=== PATIENT | male | born 1975 | race Caucasian/White ===

== ENCOUNTER 2022-09-05 21:19 | Emergency (ER) | payer BC, SELFPAY ==
[2022-09-05 21:31] VITALS: BP 147/82; PULSE 94; RESP 18; TEMP 36.8; O2SAT 95; BMI 26.4
--- NOTE | 2022-09-05 21:43 | PC.NURSE ---
Pt reporting left sided chest pain along with cold like symptoms.
[2022-09-05 21:49] VITALS: BP 135/78; PULSE 88; TEMP 36.9; O2SAT 96
--- NOTE | 2022-09-05 21:50 | DI.RAD.S_ITS ---
PROCEDURE: XR CHEST 2V INDICATIONS: cough, chest pain TECHNIQUE: 2 views of the chest were acquired. COMPARISON: None. FINDINGS: Surgical changes and devices: None. Lungs and pleura: Lungs are clear. No pleural effusions or pneumothorax. Mediastinum: Mediastinal contours are normal. Heart size is normal. Bones and chest wall: No suspicious bony abnormalities. Soft tissues appear unremarkable. IMPRESSION: No definite pneumonia found. Dictated by: Solitario Murphy M.D. on 09/05/2022 at 22:29 Approved by: Solitario Murphy M.D. on 09/05/2022 at 22:29
[2022-09-05 22:46] VITALS: BP 124/71; PULSE 85; O2SAT 96
[2022-09-05 23:01] LABS: Influenza A - CEPHEID Flu A NEGATIVE (NEGATIVE); Influenza B - CEPHEID Flu B NEGATIVE (NEGATIVE); Respiratory Syncytial Virus Negative (Negative)
[2022-09-05 23:03] LABS: COVID-19 CEPHEID 4-PLEX PCR POSITIVE (Negative)
[2022-09-05 23:14] LABS: INR 1.1 (0.9-1.3); Prothrombin Time 12.3 SECONDS (10.1-12.7)
[2022-09-05 23:17] LABS: PTT Partial Thromboplastin Tim 34 SECONDS (26-36)
[2022-09-05 23:19] LABS: Alanine Aminotransferase 72 IU/L (<50); Albumin 4.1 g/dL (3.5-5.0); Albumin Globulin Ratio 1.3 (1.0-2.8); Alkaline Phosphatase 87 U/L (38-126); Aspartate Aminotransferase 42 IU/L (17-59); BUN Creatinine Ratio 13.8 (6-22); Bilirubin Total 0.5 mg/dL (0.2-1.3); Blood Urea Nitrogen 12 mg/dL (9-20); Calcium 8.7 mg/dL (8.4-10.2); Carbon Dioxide 28 mmol/L (22-32); Chloride 103 mmol/L (98-107); Creatine Kinase 141 U/L (55-170); Estimated Glomerular Filt Rate > 60 mL/min (>60); Globulin 3.1 g/dL (1.7-4.1); Glucose 95 mg/dL (70-100); HEMOLYSIS 42 (0-50); Lipase 68 U/L (23-300); Magnesium 2.2 mg/dL (1.6-2.3); Potassium 4.1 mmol/L (3.4-5.1); Sodium 138 mmol/L (137-145); Total Protein 7.2 g/dL (6.3-8.2)
[2022-09-05 23:27] LABS: Add Manual Diff / Slide Review NO; Basophils Absolute Auto 0 /uL (0-100); Basophils Percent Auto 0.4 % (0-2); Eosinophils Absolute Auto 200 /uL (0-450); Eosinophils Percent Auto 4.3 % (2-4); Hematocrit 42.3 % (41-53); Hemoglobin 14.3 g/dL (13.5-17.5); Lymphocytes Absolute Auto 2000 /uL (1100-4500); Lymphocytes Percent Auto 36.8 % (25-40); Mean Corpuscular HGB Conc 33.7 % (30-36); Mean Corpuscular Hemoglobin 30.1 PG (26-34); Mean Corpuscular Volume 89.3 fL (80-100); Monocytes Absolute Auto 600 /uL (0-900); Monocytes Percent Auto 11.4 % (3-14); Neutrophils Absolute Auto 2600 /uL (1500-7000); Neutrophils Percent Auto 47.1 % (50-75); Platelet Count 239 X10^3/uL (150-400); Red Blood Cell Count 4.74 X10^6/uL (4.5-5.9); Red Cell Distribution Width 13.5 % (11.6-14.8); White Blood Cell Count 5.5 X10^3/uL (4.5-11.0)
[2022-09-05 23:30] LABS: Troponin I < 0.012 ng/mL (0.01-0.034)
[2022-09-05 23:34] LABS: CKMB % Relative Index 0.2 % (1.5-5.0); Creatine Kinase MB 0.35 ng/mL (<2.37)
--- NOTE | 2022-09-06 00:03 | ED_ITS ---
HPI - Chest Pain General Chief Complaint: Upper Respiratory Symptoms Stated Complaint: cough/tight chest x2 days Time Seen by Provider: 09/05/22 21:49 Source: patient, family and RN notes reviewed Mode of arrival: Ambulatory Limitations: no limitations History of Present Illness HPI narrative: This is a 46-year-old male who presents with complaint of 2 days of generalized myalgias starting more in his back, nasal congestion, sore throat. Patient developed some left-sided chest discomfort shortness of breath. He used his albuterol and QVAR which he states helped his shortness of breath. He is had a cough which been nonproductive no hemoptysis or other color changes. Has not had fevers but he is had night sweats. He denies nausea or vomiting. No diarrhea constipation. No swelling in his extremities. Patient states he went to a [employer] dance several days before that without a mask and since then both him and his son have developed symptoms. Patient states he takes amlodipine, uses QVAR and albuterol as his only medications. He had Tylenol in the last day. Denies any surgeries. No allergies. No tobacco. Occasional alcohol. No illicit. Patient states when he has asthma flares he usually just started using his QVAR he does not use it as a maintenance therapy and this often resolves his symptoms and he states it has helped. Related Data Home Medications Medication Instructions Recorded Confirmed albuterol sulfate 2 inh Q4H PRN Shortness Of Breath 09/05/22 09/05/22 amlodipine 5 mg tablet 5 mg DAILY 09/05/22 09/05/22 Previous Rx's Medication Instructions Recorded beclomethasone dipropionate 80 1 inh inhalation Q12H #10.6 grams 09/06/22 mcg/actuation HFA breath activated aerosol (Qvar RediHaler) Allergies Allergy/AdvReac Type Severity Reaction Status Date / Time No Known Drug Allergies Allergy Verified 09/05/22 21:38 Review of Systems Review of Systems ROS Unobtainable: All systems reviewed & are unremarkable except as noted in HPI and below Patient History Social History Smoking Status: Never smoker Smoking Status: Never smoker alcohol intake frequency: holidays/special occasions only Substance Use Type: does not use Exam Narrative Exam Narrative: GEN: well nourished, well appearing male, alert and oriented x 3, patient appear s to be in mild distress. HEENT: Atraumatic, pupils are equal round reactive to light, extraocular m ovements are intact, nares are clear HEART: Regular rate and rhythm without murmur, clicks, rubs LUNGS:Lungs clear to auscultation, no wheezes, rales, crackles, chest moves symmetrically, no tachypnea or accessory muscle use. Patient's speaks in full sentences ABD:bowel sounds normal, soft, non-tender, no guarding, rebound, rigidity, no masses noted, no hepatosplenomegaly :No CVA tenderness MSCL: Non-tender, no muscle atrophy, muscles strength 5/5 upper and lower extremities, full range of motion, normal gait NEURO:CN 2-12 intact, sensation normal, Initial Vital Signs Initial Vital Signs: Vital Signs Temperature 98.3 F 09/05/22 21:31 Pulse Rate 94 H 09/05/22 21:31 Respiratory Rate 18 09/05/22 21:31 Blood Pressure 147/82 H 09/05/22 21:31 Pulse Oximetry 95 09/05/22 21:31 Oxygen Delivery Method 09/05/22 21:31 Course Orders Ordered: ED Orders 09/05/22 21:45 EKG-12 Lead Stat 09/05/22 21:50 Chest [XR chest 2V] Stat 09/05/22 21:59 Covid-19 + FLU A/B + RSV - PCR Stat 09/05/22 22:54 Complete Blood Count AUTO DIFF Stat Comprehensive Metabolic Panel Stat Lipase Stat Magnesium Stat Partial Thromboplastin Time Stat Prothrombin Time INR Stat Troponin & CK Cardiac Panel Stat Discontinued Medications Aspirin (Aspirin 81 Mg Chew Tab) 324 mg PO NOW ONE Stop: 09/05/22 23:02 Last Admin: 09/06/22 00:15 Dose: Not Given Documented By: SB NOREPINEPHRINE BITARTRATE/D5W (Levophed) 4 mg in 250 mls @ 30 mls/hr IV TITRATE LETY; Protocol Vital Signs Vital signs: Vital Signs - 8 hr 09/05/22 21:31 09/05/22 21:49 09/05/22 22:46 Temperature 98.3 F 98.4 F Pulse Rate 94 H 88 85 Respiratory Rate 18 Blood Pressure 147/82 H 135/78 124/71 Pulse Oximetry 95 96 96 Oxygen Delivery Method Room Air Room Air Room Air MDM - Chest Pain Lab Data 09/05/22 22:54 09/05/22 22:54 Labs: Lab Results 09/05/22 09/05/22 09/05/22 Range/Units 21:59 22:54 22:54 WBC 5.5 (4.5-11.0) X10^3/uL RBC 4.74 (4.5-5.9) X10^6/uL Hgb 14.3 (13.5-17.5) g/dL Hct 42.3 (41-53) % MCV 89.3 (80-100) fL MCH 30.1 (26-34) PG MCHC 33.7 (30-36) % RDW 13.5 (11.6-14.8) % Plt Count 239 (150-400) X10^3/uL Neut % (Auto) 47.1 L (50-75) % Lymph % (Auto) 36.8 (25-40) % Erie % (Auto) 11.4 (3-14) % Eos % (Auto) 4.3 H (2-4) % Baso % (Auto) 0.4 (0-2) % Neut # (Auto) 2600 (1080-8262) /uL Lymph # (Auto) 2000 (8825-4126) /uL Erie # (Auto) 600 (0-900) /uL Eos # (Auto) 200 (0-450) /uL Baso # (Auto) 0 (0-100) /uL PT 12.3 (10.1-12.7) SECONDS INR 1.1 (0.9-1.3) APTT 34 (26-36) SECONDS Sodium (137-145) mmol/L Potassium (3.4-5.1) mmol/L Chloride (98-107) mmol/L Carbon Dioxide (22-32) mmol/L BUN (9-20) mg/dL Creatinine (0.66-1.25) mg/dL Estimated GFR (>60) mL/min BUN/Creatinine Ratio (6-22) Glucose (70-100) mg/dL Calcium (8.4-10.2) mg/dL Magnesium (1.6-2.3) mg/dL Total Bilirubin (0.2-1.3) mg/dL AST (17-59) IU/L ALT (<50) IU/L Alkaline Phosphatase (38-126) U/L Total Creatine Kinase (55-170) U/L CK-MB (CK-2) (<2.37) ng/mL CK-MB (CK-2) Rel Index (1.5-5.0) % Troponin I (0.01-0.034) ng/mL Total Protein (6.3-8.2) g/dL Albumin (3.5-5.0) g/dL Globulin (1.7-4.1) g/dL Albumin/Globulin Ratio (1.0-2.8) Lipase (23-300) U/L SARS-CoV-2 (PCR) Positive H (Negative) Influenza A (RT-PCR) Flu a negative (NEGATIVE) Influenza B (RT-PCR) Flu b negative (NEGATIVE) RSV (PCR) Negative (Negative) 09/05/22 Range/Units 22:54 WBC (4.5-11.0) X10^3/uL RBC (4.5-5.9) X10^6/uL Hgb (13.5-17.5) g/dL Hct (41-53) % MCV (80-100) fL MCH (26-34) PG MCHC (30-36) % RDW (11.6-14.8) % Plt Count (150-400) X10^3/uL Neut % (Auto) (50-75) % Lymph % (Auto) (25-40) % [place]rie % (Auto) (3-14) % Eos % (Auto) (2-4) % Baso % (Auto) (0-2) % Neut # (Auto) (5350-0250) /uL Lymph # (Auto) (5805-8617) /uL Erie # (Auto) (0-900) /uL Eos # (Auto) (0-450) /uL Baso # (Auto) (0-100) /uL PT (10.1-12.7) SECONDS INR (0.9-1.3) APTT (26-36) SECONDS Sodium 138 (137-145) mmol/L Potassium 4.1 (3.4-5.1) mmol/L Chloride 103 (98-107) mmol/L Carbon Dioxide 28 (22-32) mmol/L BUN 12 (9-20) mg/dL Creatinine 0.87 (0.66-1.25) mg/dL Estimated GFR > 60 (>60) mL/min BUN/Creatinine Ratio 13.8 (6-22) Glucose 95 (70-100) mg/dL Calcium 8.7 (8.4-10.2) mg/dL Magnesium 2.2 (1.6-2.3) mg/dL Total Bilirubin 0.5 (0.2-1.3) mg/dL AST 42 (17-59) IU/L ALT 72 H (<50) IU/L Alkaline Phosphatase 87 (38-126) U/L Total Creatine Kinase 141 (55-170) U/L CK-MB (CK-2) 0.35 (<2.37) ng/mL CK-MB (CK-2) Rel Index 0.2 L (1.5-5.0) % Troponin I < 0.012 (0.01-0.034) ng/mL Total Protein 7.2 (6.3-8.2) g/dL Albumin 4.1 (3.5-5.0) g/dL Globulin 3.1 (1.7-4.1) g/dL Albumin/Globulin Ratio 1.3 (1.0-2.8) Lipase 68 (23-300) U/L SARS-CoV-2 (PCR) (Negative) Influenza A (RT-PCR) (NEGATIVE) Influenza B (RT-PCR) (NEGATIVE) RSV (PCR) (Negative) Imaging Data Chest x-ray: Radiologist's Impression: [address] [address] XRay Report Signed Patient: Nghia Pinto MR#: [id number] : 1975 Acct:[id number] Age/Sex: 46 / M Date of Service: 09/05/22 Loc: ED Accession Number: [id number] ?? Procedure: XR chest 2V Ordering Provider: Janet Cardoso D.O. PROCEDURE:? XR CHEST 2V ? INDICATIONS:? cough, chest pain ? TECHNIQUE:? 2 views of the chest were acquired.? ? COMPARISON:? None. ? FINDINGS:? ? Surgical changes and devices:? None.? ? Lungs and pleura:? Lungs are clear.? No pleural effusions or pneumothorax.? ? Mediastinum:? Mediastinal contours are normal.? Heart size is normal.? ? Bones and chest wall:? No suspicious bony abnormalities.? Soft tissues appear unremarkable.? ? IMPRESSION:? No definite pneumonia found. ? ? Dictated by: oSlitario Murphy M.D. on 09/05/2022 at 22:29 ? ? Approved by: Solitario Murphy M.D. on 09/05/2022 at 22:29?? ECG Data Attestation: I personally reviewed and interpreted this ECG as follows: Prior ECG tracings: not available for review Interpretation: Sinus rhythm rate of 77 RI 136 QRS of 96 QTC 439. Incomplete right bundle-bran ch. No priors. MDM Narrative Medical decision making narrative: This is 46-year-old male with history of asthma who is had 2 days of upper respiratory type symptoms little bit of flare of his asthma exacerbation. Patient states uses albuterol and QVAR which has helped. He had some left-sided chest pain with cough. Nonproductive no blood. He has not had fevers but has had night sweats. Patient and his son have both tested positive for COVID tonight. He had cardiac workup which was negative with CMP, CBC, lipase, tr oponin, EKG shows incomplete right bundle. No priors for comparison. Discharge Plan Departure Patient Disposition: Home Clinical Impression: COVID-19 virus infection Instructions: DI for COVID-19 (Suspected or Confirmed ) Activity Restrictions/Additional Instructions: Please follow-up if her symptoms are persisting beyond a week. Continue your QVAR while symptomatic. You can use albuterol every 4 hours as needed. Tylenol and/or ibuprofen every 6 hours as needed for fevers and myalgias Pres[facility] additional [facility]VAR [facility] on [address]. Please return to the closest emergency department for increasing chest pain, shortness of breath, lightheadedness or passing out, persistent vomiting, swelling of her extremities or other new or concerning changes. Prescriptions: New Qvar RediHaler 80 mcg/actuation HFA aerosol breath activated 1 inh inhalation Q12H Qty: 10.6 0RF Rx Instructions: administer with spacer No Action amlodipine 5 mg tablet 5 mg DAILY Label Comments: take 1 tablet by mouth once daily albuterol sulfate 2 inh Q4H PRN (Reason: Shortness Of Breath) Stand Alone Forms: Patient Portal/API
== END 2022-09-06 01:44 | disposition home or self-care (01) ==
PROVIDERS: Emergency Provider Emergency Medicine
DX: U07.1 COVID-19 (principal); R07.9 Chest pain, unspecified
CPT/HCPCS: 0241U; 36415; 71046; 80053; 82550; 82553; 83690; 83735; 84484; 85025; 85610; 85730; 93005; 93010; 99284